=== PATIENT | female | born 2005 | race Caucasian/White ===

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

== ENCOUNTER 2025-05-27 14:44 | Emergency (ER) | payer OTHER, SELFPAY ==
[2025-05-27 14:44] VITALS: BP 131/71; PULSE 105; RESP 22; TEMP 36.2; O2SAT 92; BMI 26.9
--- NOTE | 2025-05-27 15:13 | EX.ED.DYSGE1 ---
HPI History of Present Illness Chief Complaint: Allergic Reaction [facility] Medical History Anxiety Depression Eczema Home Medications ?Medication ?Instructions ?Recorded ?Last Taken ?Type fluoxetine 20 mg capsule 40 mg PO DAILY 02/26/18 Unknown History melatonin 3 mg tablet 3 mg PO QHS 02/26/18 Unknown History etonogestrel 68 mg subdermal 1 implant subdermal .continuous 07/07/24 Unknown History implant (Nexplanon) fluoxetine 40 mg capsule 40 mg PO DAILY 07/07/24 Unknown History hydroxyzine HCl 25 mg tablet 25 mg PO QHS PRN sleep 07/07/24 Unknown History norgestimate 0.25 mg-ethinyl 1 tab PO DAILY 07/07/24 Unknown History estradiol 0.035 mg tablet (Isabelle) dupilumab 300 mg/2 mL subcutaneous mg subcut 05/27/25 Unknown History syringe (Dupixent) Allergy/AdvReac Type Severity Reaction Status Date / Time Egg Derived Allergy Rash Verified 05/27/25 14:45 milk Allergy Rash Verified 05/27/25 14:45 nut - unspecified (nut) Allergy Rash Verified 05/27/25 14:45 peanut oil Allergy Rash Verified 05/27/25 14:45 Penicillins Allergy Hives Verified 05/27/25 14:45 soy Allergy Rash Verified 05/27/25 14:45 wheat Allergy Rash Verified 05/27/25 14:45 Social History adopted: No household members: family housing: house number of children: 0 current occupational status: employed current occupation: [employer] current occupational exposures/hazards: No pets and animals: Yes pets and animals: cat(s) and dog(s) history of recent travel: No sexually active: No Smoking Status: Never smoker second hand exposure: No alcohol intake: never substance use type: does not use diet: lactose free and other well-balanced diet: daily or most days caffeine: Yes Type: carbonated beverages Number of servings: 2 eating out: 1-3 times/week during the past year weight has: remained stable what type of physical activity do you participate in: none seatbelt use: always do you feel safe at home: Yes additional social history: lives with parents & brother EXAM Physical Exam Const Vital Signs: 05/27/25 14:44 Temperature 97.1 F L Temperature Source Temporal Pulse Rate 105 H Respiratory Rate 22 H Blood Pressure 131/71 H Blood Pressure Mean 91 Pulse Ox 92 Oxygen Delivery Method Room Air [facility] Narrative Medical decision making narrative: HISTORY OF PRESENT ILLNESS: Chief complaint: Allergic reaction 19 female presents with concern for rash. Noted began suddenly 15 minutes ago. Notes she has itching and feeling hot and has a sticky throat. She think she may be having allergic reaction. Denies new foods, travel, new medicines. REVIEW OF SYSTEMS: Pertinent positives: Allergic reaction Pertinent negatives: Shortness of breath, abdominal pain, urticaria PHYSICAL EXAM: Nursing triage notes reviewed, Vital signs reviewed Constitutional: please see mdm HENT: MMM, no posterior oropharyngeal swelling, no stridor, no pooling of secretions Eyes: Pupils equal round and reactive to light, Extraocular muscles intact Neck: No stridor, no JVD, full neck ROM Lungs: Clear to auscultation, No wheezing or rales. No increased work of breathing, no conversational dyspnea, no accessory muscle use, no nasal flaring. No respiratory distress noted Heart: Regular rate and rhythm, No murmurs, No rubs and No gallops, 2+ distal pulses (radial, femoral, posterior tibial) in all extremities Abdomen: Soft, there is no tenderness, rigidity, rebound or guarding, no obvious peritoneal signs, no palpable pulsatile abdominal masses, no auscultated abdominal bruit : No CVAT Extremities: No edema Neuro: No new focal neurological deficits, cranial nerves II through XII intact, 5/5 strength in all present extremities. Intact sensation to light touch in all present extremities, 2+ reflexes bilateral patella tendons. Skin: Diffuse erythematous confluent rash noted throughout the entire body. No palpable purpura, bullae, no crepitus, no induration or fluctuance noted. No urticaria. MEDICAL DECISION MAKING: Chief Complaint: please see [facility] Factors affecting care: none Social determinants of health: none History obtained from others: Family Consults: none [facility] Narrative: Patient was initially hemodynamically stable, afebrile and nontoxic-appearing. Exam with confluent rash I considered the following differential diagnosis: Urticaria, allergy, anaphylaxis, anaphylactic shock No clinical signs of urticaria, anaphylaxis or anaphylactic shock I treated patient empirically with antihistamines, prednisone and epinephrine for symptomatic control. As there is no sign of anaphylaxis no need for prolonged for observation. Will give allergy immunology and dermatology follow-up. Will give a short course of prednisone and instruct patient to take antihistamines daily for the next 5 days The patient and/or family, caregivers express understanding. The patient and/or family, caregivers agrees with the plan. Shared decision making: I will have a discussion with the patient and or visitors regarding risk/benefits of further testing or admission. They will be made aware of of the risk/benefits inherent in this decision they will be given the opportunity to voice understanding. Total critical care time today provided was at least 0 minutes. This excludes separately billable procedures. Critical care time (if documented) is secondary to the patient having high probability of clinically significant/life threatening deterioration in the patient's condition which required my urgent intervention. Impression: 1. Rash 2. Allergic reaction Dispo: Discharge home This note was generated with [employer] dictation software. It may contain incorrect words, spelling, and punctuation that were not noted in review of the chart prior to signing. Discharge Plan Triage Chief Complaint: Allergic Reaction ED Provider: David Lara Dx/Rx/DC Orders Prescriptions: No Action fluoxetine 20 MG capsule 40 mg PO DAILY melatonin 3 MG tablet 3 mg PO QHS fluoxetine 40 mg capsule 40 mg PO DAILY hydroxyzine HCl 25 mg tablet 25 mg PO QHS PRN (Reason: sleep) Nexplanon 68 mg implant 1 implant SUBDERMAL .continuous Patient Comments: [NO ORIGINAL SIG] norgestimate-ethinyl estradiol [Isabelle] 0.25-35 mg-mcg tablet 1 tab PO DAILY Dupixent Syringe 300 mg/2 mL syringe SUBCUT Patient Comments: [NO ORIGINAL SIG] Primary Care Provider: Don Luna Referrals: Don Luna MD [Primary Care Provider, Family Practice] Print Language: Yi
[2025-05-27 15:44] VITALS: BP 122/64; PULSE 96; RESP 16; O2SAT 100
[2025-05-27 16:00] VITALS: BP 122/64; PULSE 96; RESP 16; O2SAT 100
[2025-05-27 16:25] VITALS: BP 122/64; PULSE 96; RESP 16; TEMP 36.8; O2SAT 100
== END 2025-05-27 16:25 | disposition home or self-care (01) ==
PROVIDERS: Emergency Provider Emergency Medicine; PCP Family Medicine; Visit Provider Emergency Medicine
DX: R21 Rash and other nonspecific skin eruption (principal); T78.40XA Allergy, unspecified, initial encounter; F41.9 Anxiety disorder, unspecified; F32.A Depression, unspecified; Z79.899 Other long term (current) drug therapy
CPT/HCPCS: 99282; A4216